=== PATIENT | female | born 1990 | race Hispanic/Latino ===

== ENCOUNTER 2021-02-26 04:26 | Inpatient (IN) | payer OTHER, MEDICAID ==
[~2021-02-26] VITALS: Ht 152.4 cm; Wt 58.5 kg
[2021-02-26] MEDS ORDERED: FERR1TAB22 PO (04:43)
[2021-02-26] MEDS ORDERED: PREN-64 PO (04:43)
[2021-02-26] MEDS ORDERED: LACTATED RINGERS 1000ML IV PRN (05:00)
[2021-02-26 05:04] LABS: APPEARANCE,URINE Clear (CLEAR); BILIRUBIN,URINE Negative (NEGATIVE); COLOR,URINE Yellow (YELLOW); GLUCOSE, URINE (UA) Negative (NEGATIVE); KETONES,URINE Negative (NEGATIVE); LEUKOCYTE ESTERASE ,URINE Small (NEGATIVE); NITRATE,URINE Negative (NEGATIVE); OCCULT BLOOD,URINE Negative (NEGATIVE); PROTEIN,URINE Negative (NEGATIVE)
[2021-02-26 05:23] LABS: BACTERIA,URINE None Seen /HPF (None Seen); RBC,URINE None Seen /HPF (0-1); SQUAMOUS EPITHELIAL CELL,UR Rare /HPF (0-2); WBC,URINE 0-1 /HPF (0-1)
[2021-02-26 05:35] VITALS: BP 121/78
[2021-02-26] MEDS ORDERED: LACTATED RINGERS 1000ML 1,000 ML IV PRN (06:00)
[2021-02-26] MEDS ORDERED: AMPICILLIN 2GM+NS 100ML 100 ML IV SCH (06:00)
[2021-02-26 07:02] LABS: HEMATOCRIT 32.7 % (36-48); MEAN CORPUSCULAR HEMOGLOBIN 27.3 pg (27.0-33.0); MEAN CORPUSCULAR HGB CONC 32.1 g/dL (32.0-36.0); MEAN CORPUSCULAR VOLUME 84.9 fL (79-99); RED BLOOD CELL COUNT(AUTO) 3.85 MIL/uL (4.00-5.50); RED CELL DISTRIBUTION WIDTH 16.5 % (11.0-15.5); WHITE BLOOD COUNT (AUTO) 5.7 K/uL (4.8-10.8)
[2021-02-26] MEDS ORDERED: PROMETHAZINE HCL 25 MG/ML 1ML AMPULE IM PRN (08:00)
[2021-02-26] MEDS ORDERED: NALOXONE HCL 0.4 MG/1 ML ML IV PRN (08:00)
[2021-02-26] MEDS ORDERED: EPHEDRINE SULFATE 50 MG/ML AMPULE IVP PRN (08:00)
[2021-02-26] MEDS ORDERED: OXYTOCIN-LR 20 UNITS/1000 ML 1,000 ML IV SCH (08:00)
[2021-02-26] MEDS ORDERED: LACTATED RINGERS 500 ML 500 ML IV PRN (08:00)
[2021-02-26] MEDS ORDERED: ROPIVACAINE 0.2% 100ML VIAL 100 ML EP SCH (08:00)
[2021-02-26] MEDS ORDERED: MEPERIDINE-PF 50 MG/ML SYG IVP PRN (08:00)
[2021-02-26] MEDS: OXYTOCIN-LR 20 UNITS/1000 ML 1,000 ML IV SCH ×2 (09:39→10:43)
[2021-02-26] MEDS ORDERED: METHYLERGONOVINE MALEATE 0.2 MG/1 ML ML IM SCH (09:50)
[2021-02-26] MEDS ORDERED: METHYLERGONOVINE MALEATE 0.2 MG/1 ML ML ONE (09:51)
[2021-02-26] MEDS ORDERED: ACETAMINOPHEN 325 MG TAB PO PRN (10:30)
[2021-02-26] MEDS ORDERED: BENZOCAINE/LANOLIN/ALOE VERA 60 ML AEROSOL TP PRN (10:30)
[2021-02-26] MEDS ORDERED: LANOLIN 30GM OINTMENT TP PRN (10:30)
[2021-02-26] MEDS ORDERED: MEASLES/MUMPS/RUBELLA VACCINE, LIVE 0.5 ML/VIAL SQ PRN (10:30)
[2021-02-26] MEDS ORDERED: ACETAMINOPHEN WITH CODEINE 1 TAB TAB PO PRN (10:30)
[2021-02-26] MEDS ORDERED: WITCH HAZEL 1 PAD TP PRN (10:30)
[2021-02-26] MEDS ORDERED: DIPH,PERTUSS(ACELL),TET VAC/PF 0.5 ML VIAL IM PRN (10:30)
[2021-02-26] MEDS: IBUPROFEN 600 MG TABLET PO PRN ×2 (11:39→20:24)
[2021-02-26 12:20] VITALS: BP 110/71
[2021-02-26 15:56] VITALS: BP 111/61
[2021-02-26 19:30] VITALS: BP 102/55
[2021-02-26] MEDS: DOCUSATE SODIUM 100 MG CAP PO SCH (20:23)
[2021-02-26] MEDS: AMPICILLIN 1GM+NS 50ML 50 ML IV SCH ×2 (21:41→21:43)
[2021-02-26 23:40] VITALS: BP 110/66
[2021-02-27 03:10] VITALS: BP 102/56
[2021-02-27 05:58] LABS: HEMATOCRIT 30.6 % (36-48); MEAN CORPUSCULAR HEMOGLOBIN 27.1 pg (27.0-33.0); MEAN CORPUSCULAR HGB CONC 32.4 g/dL (32.0-36.0); MEAN CORPUSCULAR VOLUME 83.8 fL (79-99); RED BLOOD CELL COUNT(AUTO) 3.65 MIL/uL (4.00-5.50); RED CELL DISTRIBUTION WIDTH 16.5 % (11.0-15.5); WHITE BLOOD COUNT (AUTO) 7.1 K/uL (4.8-10.8)
[2021-02-27 07:50] VITALS: BP 102/65
[2021-02-27] MEDS: DOCUSATE SODIUM 100 MG CAP PO SCH ×2 (09:09→20:55)
[2021-02-27] MEDS: IBUPROFEN 600 MG TABLET PO PRN (09:09)
[2021-02-27 12:25] VITALS: BP 90/56
[2021-02-27 16:35] VITALS: BP 111/72
[2021-02-27 19:26] VITALS: BP 95/63
[2021-02-27] MEDS: AMPICILLIN 1GM+NS 50ML 50 ML IV SCH (22:00)
[2021-02-27 23:10] VITALS: BP 109/67
[2021-02-28] MEDS: IBUPROFEN 600 MG TABLET PO PRN ×2 (00:41→08:05)
[2021-02-28] MEDS: AMPICILLIN 1GM+NS 50ML 50 ML IV SCH ×3 (02:00→04:58)
[2021-02-28 03:04] VITALS: BP 109/63
[2021-02-28 04:10] LABS: HEPATITIS Bs ANTIGEN SCREEN P Negative (Negative)
[2021-02-28 07:03] VITALS: BP 118/66
[2021-02-28] MEDS: DOCUSATE SODIUM 100 MG CAP PO SCH (08:05)
[2021-02-28 11:09] VITALS: BP 120/74
== END 2021-02-28 11:15 | disposition home or self-care (01) | DRG 807 ==
LOC: EDH 04:26 → OBSVTOIN 04:27 → LDH 04:27 → WSH 12:20
PROVIDERS: ADMIT Specialist; ATTEND Specialist
PROC: 10E0XZZ Delivery of Products of Conception, External Approach (ICD-10-PCS; principal; 2021-02-26)
PROC: 10907ZC Drainage of Amniotic Fluid, Therapeutic from Products of Conception, Via Natural or Artificial Opening (ICD-10-PCS; 2021-02-26)
DX: O99.824 Streptococcus B carrier state complicating childbirth (principal); Z37.0 Single live birth; Z3A.38 38 weeks gestation of pregnancy
CPT/HCPCS: 36415; 81001; 85027; 86592; 86850; 86900; 86901; 87340; A4351; G0378; J0290; J2175; J2210; J2550; J2590; J7120

== ENCOUNTER 2021-06-23 07:03 | Day surgery (SDC) | payer OTHER, MEDICAID ==
[2021-06-20 10:14] LABS: BASOPHILS % (AUTO) 0.8 % (0.0-5.0); EOSINOPHILS % (AUTO) 2.6 % (0.0-8.0); HEMATOCRIT 38.4 % (36-48); LYMPHOCYTES % (AUTO) 33.5 % (21.0-51.0); MEAN CORPUSCULAR HEMOGLOBIN 28.6 pg (27.0-33.0); MEAN CORPUSCULAR HGB CONC 32.6 g/dL (32.0-36.0); MEAN CORPUSCULAR VOLUME 87.9 fL (79-99); MONOCYTES % (AUTO) 3.9 % (3.0-13.0); NEUTROPHILS % (AUTO) 58.8 % (40.0-77.0); PLATELET COUNT (AUTO) 272 K/uL (130-400); RED BLOOD CELL COUNT(AUTO) 4.37 MIL/uL (4.00-5.50); RED CELL DISTRIBUTION WIDTH 13.2 % (11.0-15.5); WHITE BLOOD COUNT (AUTO) 4.9 K/uL (4.8-10.8)
[~2021-06-23] VITALS: Ht 152.4 cm; Wt 51.3 kg
[2021-06-23] VITALS (20 sets, daily range): BP systolic 105–140; BP diastolic 65–84
[~2021-06-23 07:03] MED LIST: FERR1TAB22 PO; LACTATED RINGERS 1000ML 1,000 ML IV SCH; PREN-64 PO
[2021-06-23] MEDS ORDERED: LIDOCAINE PF 100MG/5ML (2%) SYRINGE 5ML ONE (07:49)
[2021-06-23] MEDS ORDERED: NEOSTIGMINE 5MG/5ML SYR IV ONE (07:50)
[2021-06-23] MEDS ORDERED: MIDAZOLAM HCL 1 MG/ML 2ML VIAL ONE (07:50)
[2021-06-23] MEDS ORDERED: PROPOFOL 10 MG/ML 20ML VIAL IV ONE (07:50)
[2021-06-23] MEDS ORDERED: GLYCOPYRROLATE 1 MG/5 ML SYRINGE ONE (07:50)
[2021-06-23] MEDS ORDERED: ONDANSETRON 4MG INJ ONE ×2 (07:50→09:20)
[2021-06-23] MEDS ORDERED: ROCURONIUM 10MG/1ML SYR 10 MG/ML ML ONE (07:50)
[2021-06-23] MEDS ORDERED: FENTANYL CITRATE PF 50 MCG/1 ML 2ML VIAL ONE ×2 (07:51→08:45)
[2021-06-23] MEDS ORDERED: DEXAMETHASONE SOD PHOSPHATE 10MG/ML 1ML VIAL ONE (08:36)
[2021-06-23] MEDS ORDERED: MEPERIDINE-PF 25 MG/ML SYG ONE (09:20)
[2021-06-23] MEDS ORDERED: KETOROLAC 30MG VIAL (30MG/ML) ONE (09:36)
[2021-06-23] MEDS ORDERED: ACETAMINOPHEN WITH CODEINE 1 TAB TAB ONE (10:11)
== END 2021-06-23 12:00 | disposition home or self-care (01) ==
LOC: DAH 07:03
PROVIDERS: ATTEND Specialist
DX: Z30.2 Encounter for sterilization (principal); Z20.822 Contact with and (suspected) exposure to COVID-19; N85.4 Malposition of uterus; Z79.899 Other long term (current) drug therapy
CPT/HCPCS: 36415 ×2; 58671; 84703; 85025; 86850 ×2; 86900 ×2; 86901 ×2; 87635; A4215 ×2; A4221; A4222; A4223; A4351; A4663; A4930; C1769 ×3; C9803; J1100; J1885; J2001; J2175; J2250; J2405 ×2; J2704; J2710; J3010 ×2; J3490; J7030; J7120